=== PATIENT | female | born 1970 | race African-American/Black ===

== ENCOUNTER 2016-08-02 19:18 | Emergency (ER) | payer OTHER ==
[~2016-08-02] VITALS: Ht 160 cm; Wt 55.7 kg
[~2016-08-02 19:18] MED LIST: AMOXICILLIN500 M1 PO; FLEXERIL10 MG PO; FLEXERIL5 MG PO; LORTAB 5-325 M1 EACH PO; MEDROL DOSEPAK4 MG PO; MOTRIN600 MG PO; MOTRIN800 MG PO; NAPROSYN500 MG PO; NOHOMEMEDS; NORCO 7.5/321 TABLET PO; TRAMADOL HCL50 MG PO; ULTRAM50 MG PO
[2016-08-02 21:32] VITALS: BP 135/83
== END 2016-08-02 21:53 | disposition home or self-care (01) ==
LOC: EME 19:18
DX: G43.909 Migraine, unspecified, not intractable, without status migrainosus (principal)
CPT/HCPCS: 99281; 99284

== ENCOUNTER 2017-05-05 00:38 | Emergency (ER) | payer OTHER ==
[~2017-05-05] VITALS: Ht 160 cm; Wt 55.3 kg
[2017-05-05 01:03] LABS: HEMATOCRIT 41.3 % (36.0-46.0); MCH 30.9 PG (29.0-34.0); MCHC 35.6 G/DL (30.0-36.0); MCV 86.9 FL (83-99); MEAN PLAT.VOLUME 8.3 uM^3 (9.5-12.4); PLATELET COUNT 384 K/uL (156-360); RBC DIS.WIDTH-CV 11.9 % (11.8-14.6); RBC DIS.WIDTH-SD 38.3 % (39-53); RED BLOOD COUNT 4.75 M/uL (3.80-5.20); WHITE BLOOD COUNT 9.3 K/uL (4.1-10.2)
[2017-05-05 01:16] LABS: CHLORIDE 105 mEq/L (99-109); POTASSIUM 3.6 mEq/L (3.7-5.4); SODIUM 138 mEq/L (136-147)
[2017-05-05 01:18] LABS: GLUCOSE 143 mg/dL (70-99)
[2017-05-05 01:19] LABS: ANION GAP 12 MEQ/L (2-14)
[2017-05-05 01:20] LABS: TOTAL BILIRUBIN 0.4 mg/dL (0.0-1.0)
[2017-05-05 01:21] LABS: ALKALINE PHOSPHATASE 69 IU/L (3-129)
[2017-05-05 01:22] LABS: GFR ESTIMATE (CALCULATED) > 59 mL/min/
[2017-05-05 01:23] LABS: UREA NITROGEN (BUN) 8 mg/dL (9-23)
[2017-05-05 01:25] LABS: LIPASE 219 U/L (1.0-51.0)
[2017-05-05 01:30] LABS: QUANTITATIVE HCG < 4.0 MIU/ML
[2017-05-05 02:23] LABS: ADD MIUA? YES; BILIRUBIN NEGATIVE; BLOOD NEGATIVE; COLOR YELLOW ((YELLOW)); GLUCOSE (STRIP) NEGATIVE; KETONES NEGATIVE; LEUKOCYTES MODERATE; NITRITE NEGATIVE; PROTEIN (STRIP) NEGATIVE; SPECIFIC GRAVITY 1.008 (1.000-1.030); UROBILINOGEN 0.2 MG/DL (0.2-1.0)
[2017-05-05 02:52] LABS: BACTERIA 1+ /HPF; EPITHELIAL CELLS 2+ /HPF; MUCUS NONE SEEN /LPF; UCUL ADDED? YES; WHITE BLOOD CELLS 30-40 /HPF (0-5)
[2017-05-05] MEDS ORDERED: ULTRAM50 MG PO (02:57)
[2017-05-05] MEDS ORDERED: KEFLEX500 MG PO (03:23)
[2017-05-05 04:03] VITALS: BP 135/92
== END 2017-05-05 04:09 | disposition home or self-care (01) ==
LOC: EME 00:38
DX: N39.0 Urinary tract infection, site not specified (principal); D25.9 Leiomyoma of uterus, unspecified; Z87.440 Personal history of urinary (tract) infections
CPT/HCPCS: 76856; 80053; 81003; 83690; 84702; 85027; 87086; 99281; 99285

== ENCOUNTER 2017-08-01 07:24 | Emergency (ER) | payer OTHER ==
[~2017-08-01] VITALS: Ht 160 cm; Wt 59.9 kg
[~2017-08-01 07:24] MED LIST changes: +KEFLEX500 MG PO
[2017-08-01] MEDS ORDERED: ZOFRAN ODT4 MG PO (07:50)
[2017-08-01 09:11] VITALS: BP 147/96
== END 2017-08-01 09:12 | disposition home or self-care (01) ==
LOC: EME 07:24
DX: K52.9 Noninfective gastroenteritis and colitis, unspecified (principal); Z87.891 Personal history of nicotine dependence
CPT/HCPCS: 99281; 99284